=== PATIENT | male | born 1940 | race Hispanic/Latino ===

== ENCOUNTER 2018-05-15 22:08 | Emergency (ER) | payer OTHER ==
[~2018-05-15 22:08] MED LIST: ALLO100T PO; AMLO10TA6 PO; AMOX500C2 PO; CALC667C10 PO; CEPH500C2 PO; FERR325T22 PO; FOLI0.8T22 PO; GLIP5TAB11 PO; ROSU40 PO; SODI15OR5 PO; SODI650T PO; TAMS0.4C32 PO
[2018-05-15] MEDS ORDERED: ONDANSETRON HCL 4 MG/2 ML VIAL ONE (22:46)
[2018-05-15] MEDS ORDERED: LABETALOL HCL 5 MG/ML 20ML VIAL IV ONE (22:47)
[2018-05-15 22:56] LABS: BASOPHILS % (AUTO) 0.4 % (0.0-5.0); EOSINOPHILS % (AUTO) 3.6 % (0.0-8.0); HEMATOCRIT 33.5 % (42-54); LYMPHOCYTES % (AUTO) 13.9 % (21.0-51.0); MEAN CORPUSCULAR HEMOGLOBIN 32.8 pg (27.0-33.0); MEAN CORPUSCULAR HGB CONC 33.7 g/dL (32.0-36.0); MEAN CORPUSCULAR VOLUME 97.4 fL (79-99); MONOCYTES % (AUTO) 9.5 % (3.0-13.0); NEUTROPHILS % (AUTO) 72.6 % (40.0-77.0); PLATELET COUNT (AUTO) 181 K/uL (130-400); RED BLOOD CELL COUNT(AUTO) 3.44 MIL/uL (4.50-6.20); RED CELL DISTRIBUTION WIDTH 14.7 % (11.0-15.5); WHITE BLOOD COUNT (AUTO) 5.5 K/uL (4.8-10.8)
[2018-05-15 23:08] LABS: CREATININE 6.5 mg/dL (0.5-1.5); POTASSIUM 4.2 mmol/L (3.5-5.1)
[2018-05-15 23:12] LABS: ALBUMIN 3.6 g/dL (3.5-5.0); BILIRUBIN,DIRECT 0.1 mg/dL (0.0-0.3); BILIRUBIN,TOTAL 0.4 mg/dL (0.2-1.0)
[2018-05-16] MEDS ORDERED: CLONIDINE HCL 0.1 MG TABLET ONE (00:19)
== END 2018-05-16 00:48 | disposition home or self-care (01) ==
LOC: EDH 22:08
DX: I10 Essential (primary) hypertension (principal); R11.2 Nausea with vomiting, unspecified
CPT/HCPCS: 36415; 71045; 80048; 80076; 83690; 84484; 85025; 93005; 96374; 96375; 99285; J2405; J3490

== ENCOUNTER 2018-09-23 11:01 | Emergency (ER) | payer OTHER ==
[~2018-09-23 11:01] MED LIST changes: -AMLO10TA6 PO; +AMLO10TA7 PO
[2018-09-23 11:37] LABS: BASOPHILS % (AUTO) 0.3 % (0.0-5.0); EOSINOPHILS % (AUTO) 0.8 % (0.0-8.0); HEMATOCRIT 40.9 % (42-54); LYMPHOCYTES % (AUTO) 11.8 % (21.0-51.0); MEAN CORPUSCULAR HEMOGLOBIN 30.8 pg (27.0-33.0); MEAN CORPUSCULAR HGB CONC 32.7 g/dL (32.0-36.0); MEAN CORPUSCULAR VOLUME 94.2 fL (79-99); MONOCYTES % (AUTO) 8.6 % (3.0-13.0); NEUTROPHILS % (AUTO) 78.5 % (40.0-77.0); PLATELET COUNT (AUTO) 196 K/uL (130-400); RED BLOOD CELL COUNT(AUTO) 4.34 MIL/uL (4.50-6.20); RED CELL DISTRIBUTION WIDTH 16.4 % (11.0-15.5); WHITE BLOOD COUNT (AUTO) 6.3 K/uL (4.8-10.8)
[2018-09-23 11:48] LABS: PARTIAL THROMBOPLASTIN TIME 27.9 SEC (26.3-35.5)
[2018-09-23 12:06] LABS: INR 0.96 (0.85-1.15); PROTHROMBIN TIME 10.1 SEC (9.6-11.6)
[2018-09-23 12:14] LABS: ALBUMIN 4.5 g/dL (3.5-5.0); BILIRUBIN,TOTAL 0.9 mg/dL (0.2-1.0); POTASSIUM 4.2 mmol/L (3.5-5.1); TOTAL PROTEIN, SERUM 8.4 g/dL (6.0-8.3)
[2018-09-23 12:20] LABS: CREATININE 9.2 mg/dL (0.5-1.5)
== END 2018-09-23 13:12 | disposition home or self-care (01) ==
LOC: EDH 11:01
DX: I12.0 Hypertensive chronic kidney disease with stage 5 chronic kidney disease or end stage renal disease (principal); R41.82 Altered mental status, unspecified; N18.6 End stage renal disease; Z99.2 Dependence on renal dialysis; Z87.891 Personal history of nicotine dependence
CPT/HCPCS: 36415; 70450; 80053; 82550; 83880; 84484; 85025; 85610; 85730; 93005

== ENCOUNTER 2021-01-18 08:45 | Observation (INO) | payer OTHER ==
[2021-01-18] VITALS (20 sets, daily range): BP systolic 178–222; BP diastolic 77–91
[~2021-01-18] VITALS: Ht 167.6 cm; Wt 68.0 kg
[~2021-01-18 08:45] MED LIST changes: -ALLO100T PO; -AMLO10TA7 PO; -AMOX500C2 PO; -CEPH500C2 PO; +CHOL100053 PO; -FERR325T22 PO; -GLIP5TAB11 PO; +METO-409 PO; +MINO2.5T3 PO; -ROSU40 PO; -SODI15OR5 PO; -SODI650T PO
[2021-01-18 11:01] LABS: BASOPHILS % (AUTO) 0.2 % (0.0-5.0); EOSINOPHILS % (AUTO) 0.9 % (0.0-8.0); HEMATOCRIT 36.2 % (42-54); LYMPHOCYTES % (AUTO) 12.7 % (21.0-51.0); MEAN CORPUSCULAR HEMOGLOBIN 32.2 pg (27.0-33.0); MEAN CORPUSCULAR HGB CONC 32.6 g/dL (32.0-36.0); MEAN CORPUSCULAR VOLUME 98.9 fL (79-99); MONOCYTES % (AUTO) 8.7 % (3.0-13.0); NEUTROPHILS % (AUTO) 77.1 % (40.0-77.0); PLATELET COUNT (AUTO) 179 K/uL (130-400); RED BLOOD CELL COUNT(AUTO) 3.66 MIL/uL (4.50-6.20); RED CELL DISTRIBUTION WIDTH 13.4 % (11.0-15.5); WHITE BLOOD COUNT (AUTO) 5.3 K/uL (4.8-10.8)
[2021-01-18 11:13] LABS: INR 1.05 (0.85-1.15); PROTHROMBIN TIME 11.4 SEC (9.6-11.6)
[2021-01-18 11:30] LABS: ALANINE AMINOTRANSFERASE 13 U/L (12-78); ASPARTATE AMINOTRANSFERASE 24 U/L (10-37); BILIRUBIN,TOTAL 0.7 mg/dL (0.2-1.0); CARBON DIOXIDE 31 mmol/L (21-32); CHLORIDE 104 mmol/L (101-111); CREATINE KINASE, TOTAL 53 U/L (21-232); GLOMERULAR FILTR. RATE CALC 6 mL/min (>60); GLUCOSE,RANDOM 88 mg/dL (70-105); MYOGLOBIN 242 ng/mL (10-92); POTASSIUM 5.4 mmol/L (3.5-5.1); SODIUM SERUM 144 mmol/L (136-145); TOTAL PROTEIN, SERUM 8.5 g/dL (6.0-8.3); TROPONIN I < 0.04 ng/mL (0.00-0.06); UREA NITROGEN, BLOOD 44 mg/dL (7-18)
[2021-01-18 11:35] LABS: CREATININE 9.3 mg/dL (0.5-1.5)
[2021-01-18 11:37] LABS: B-TYPE NATRIURETIC PEPTIDE 4450 pg/mL (0-100)
[2021-01-18] MEDS ORDERED: GLUCAGON 1MG KIT 1 MG ML IM PRN (13:45)
[2021-01-18] MEDS ORDERED: DEXTROSE 50%-WATER 50 ML DISP.SYRIN IV PRN (13:45)
[2021-01-18] MEDS: HEPARIN 5,000 UNIT VIAL SQ SCH ×2 (14:41→20:16)
[2021-01-18] MEDS: INSULIN HUMULIN R 100 UNIT/ML 3ML SQ SCH ×2 (16:30→21:00)
[2021-01-18] MEDS: NACL 0.9% 1000ML 1,000 ML IV PRN ×2 (20:12→22:20)
[2021-01-18] MEDS ORDERED: ONDANSETRON 4MG INJ IVP PRN (22:00)
[2021-01-18] MEDS ORDERED: ACETAMINOPHEN 325 MG TAB PO PRN (22:00)
[2021-01-18] MEDS: LABETALOL 20MG VIAL IV PRN ×2 (22:29→22:31)
[2021-01-18] MEDS ORDERED: LABETALOL 20MG SYG IV ONE (22:36)
[2021-01-18] MEDS ORDERED: CLONIDINE HCL 0.1 MG TABLET PO PRN (23:15)
[2021-01-19] VITALS (7 sets, daily range): BP systolic 166–204; BP diastolic 59–84
[2021-01-19] MEDS: HYDRALAZINE 20MG/ML VIAL IV PRN ×2 (04:14→09:17)
[2021-01-19 06:04] LABS: HEMATOCRIT 30.6 % (42-54); MEAN CORPUSCULAR HEMOGLOBIN 31.6 pg (27.0-33.0); MEAN CORPUSCULAR HGB CONC 32.4 g/dL (32.0-36.0); MEAN CORPUSCULAR VOLUME 97.8 fL (79-99); RED BLOOD CELL COUNT(AUTO) 3.13 MIL/uL (4.50-6.20); RED CELL DISTRIBUTION WIDTH 13.5 % (11.0-15.5); WHITE BLOOD COUNT (AUTO) 5.3 K/uL (4.8-10.8)
[2021-01-19 06:15] LABS: CREATININE 6.5 mg/dL (0.5-1.5)
[2021-01-19] MEDS: INSULIN HUMULIN R 100 UNIT/ML 3ML SQ SCH (07:30)
[2021-01-19] MEDS ORDERED: CALCIUM AC 667MG CAP PO SCH (08:00)
[2021-01-19 08:09] LABS: HEPATITIS Bs ANTIGEN SCREEN P Negative (Negative)
[2021-01-19] MEDS ORDERED: CHOL100040 PO (08:25)
[2021-01-19] MEDS ORDERED: LISI40TA9 PO (08:25)
[2021-01-19] MEDS ORDERED: METO-391 PO (08:25)
[2021-01-19] MEDS ORDERED: ONDA4TAB4 PO (08:25)
[2021-01-19] MEDS ORDERED: TRAM50TA4 PO (08:25)
[2021-01-19] MEDS ORDERED: TRAMADOL HCL 50 MG TABLET PO PRN (08:30)
[2021-01-19] MEDS ORDERED: ONDANSETRON 4MG TABLET PO PRN (08:30)
[2021-01-19] MEDS: NACL 0.9% 1000ML 1,000 ML IV PRN (08:49)
[2021-01-19] MEDS: LABETALOL 20MG VIAL IV PRN ×2 (08:50→09:17)
[2021-01-19] MEDS ORDERED: LISINOPRIL 40 MG TABLET PO SCH (09:00)
[2021-01-19] MEDS ORDERED: PANTOPRAZOLE 40 MG TAB DR PO SCH (09:00)
[2021-01-19] MEDS ORDERED: METOPROLOL SUCCINATE 50 MG TAB.SR.24H PO SCH ×2 (09:00)
[2021-01-19] MEDS ORDERED: Vitamin B Complex/Vit C/Folic Acid PO SCH (09:00)
[2021-01-19] MEDS ORDERED: NON-FORMULARY MEDICATION 1 EACH (Folic Acid/Vitamin B Comp W-C (Rena-Vite Tablet) 1 TAB) PO SCH (09:00)
[2021-01-19] MEDS ORDERED: MINOXIDIL 2.5 MG TAB PO SCH (09:00)
[2021-01-19] MEDS ORDERED: VIT D3 PO SCH (09:00)
[2021-01-19] MEDS ORDERED: CHOLECALCIFEROL 10000 UNIT PO SCH (09:00)
[2021-01-19] MEDS ORDERED: TAMSULOSIN HCL 0.4 MG CAP.ER.24H PO SCH (17:00)
== END 2021-01-19 13:27 | disposition home or self-care (01) ==
LOC: EDH 08:45 → EDHIP 13:35
PROVIDERS: ADMIT Internal Medicine Critical Care Medicine; ATTEND Internal Medicine Critical Care Medicine
DX: J81.0 Acute pulmonary edema (principal); I12.0 Hypertensive chronic kidney disease with stage 5 chronic kidney disease or end stage renal disease; E11.22 Type 2 diabetes mellitus with diabetic chronic kidney disease; E11.21 Type 2 diabetes mellitus with diabetic nephropathy; N18.6 End stage renal disease; E87.5 Hyperkalemia; I16.0 Hypertensive urgency; E87.70 Fluid overload, unspecified; E11.51 Type 2 diabetes mellitus with diabetic peripheral angiopathy without gangrene; Z99.2 Dependence on renal dialysis; Z95.818 Presence of other cardiac implants and grafts; Z86.16 Personal history of COVID-19; E78.5 Hyperlipidemia, unspecified; Z87.891 Personal history of nicotine dependence; Z91.11 Patient's noncompliance with dietary regimen; Z91.19 Patient's noncompliance with other medical treatment and regimen; Z79.899 Other long term (current) drug therapy
CPT/HCPCS: 36415 ×2; 71045 ×2; 80048; 80053; 82550; 82948 ×2; 83874; 83880; 84145; 84484 ×3; 85025; 85027; 85378; 85610; 86704; 86706; 87040 ×2; 87340; 93005; 96361 ×2; 96372; 96374; 96375; 99285; G0378 ×20; J0360; J1644 ×3; 90935